=== PATIENT | male | born 2000 | race Caucasian/White ===

== ENCOUNTER 2022-09-12 14:17 | Emergency (ER) | payer OTHER, SELFPAY ==
--- NOTE | 2022-09-12 14:26 | ED.EAR ---
HPI - Ear Problem General Chief complaint: Ear Stated complaint: EARACHE Time Seen by Provider: 09/12/22 14:26 Source: patient and RN notes reviewed History of Present Illness HPI Narrative: Patient is a 22-year-old male who presents to Urgent Care with his mother with complaints of left ear pain for the last 9 days. Patient states he has been fairly miserable since he came back to our area from college on August 19. Patient does have chronic history of sinusitis and was on both Sudafed and a nasal steroid for many years stopping approximately 1-2 years ago. Patient does use a Neti pot nearly daily. Patient has not taken anything else [id number] for his symptoms. No other acute complaints. No acute distress noted. Patient aware of the plan of care. Some parts of this dictation were generated by voice recognition software and may contain typographical and/or grammatical inaccuracies. Related Data Allergies Allergy/AdvReac Type Severity Reaction Status Date / Time No Known Allergies Allergy Mild Unverified 09/12/22 14:26 Review of Systems Review of Systems: CONSTITUTIONAL: Denies fever, chills, or sweats. EYES: Denies visual changes, redness, or discharge. ENT: Denies rhinorrhea, congestion, sore throat. Reports of left otalgia and sinus pressure CARDIOVASCULAR: Denies chest pain, palpitations, or edema. RESPIRATORY: Denies cough or dyspnea. GASTROINTESTINAL: Denies abdominal pain, nausea, vomiting, or diarrhea. GENITOURINARY: Denies dysuria or hematuria. SKIN: Denies rash or itching. MUSCULOSKELETAL: Denies back pain, joint pain, or myalgia. NEUROLOGIC: Denies headache, numbness, or weakness. All other systems reviewed are negative, except as documented in HPI. PMFSH Comments At the time of my signature, I reviewed and agree with the nursing past medical, surgical, social, and family history. There is no relevant family history pertinent to the patient complaint. Exam Narrative: GENERAL: This is a well-nourished, well-developed patient, in no apparent distress. HEAD: normocephalic, atraumatic. EYES: PERRL. Sclera clear/white. Vision is grossly intact. EARS: External ears normal, auditory canals clear and without drainage, TMs normal without perforation. Hearing grossly intact. NOSE: External nose normal with no obvious nasal discharge, nares without redness, clear rhinorrhea. THROAT: Mucous membranes moist, posterior pharynx clear. Mild postnasal drainage NECK: Neck supple SKIN: warm, intact with no suspicious lesions or rash, good texture and turgor. NEURO: awake, alert, and oriented to person, place and time. There were no obvious focal neurologic abnormalities. EXTREMITIES: No clubbing, cyanosis, or edema. Course Course Level of Care: Express Care Visit Vital Signs Vital signs: Vital Signs Pulse Rate 98 09/12/22 14:28 Respiratory Rate 16 09/12/22 14:28 Blood Pressure 117/89 09/12/22 14:28 Pulse Oximetry 99 09/12/22 14:28 Pulse Rate 98 09/12/22 14:28 Respiratory Rate 16 09/12/22 14:28 Blood Pressure 117/89 09/12/22 14:28 Pulse Oximetry 99 09/12/22 14:28 Reviewed Medical Decision Making MDM Narrative Medical decision making narrative: Advised patient to complete the oral steroid regimen as prescribed. May also use Benadryl prior to bedtime. Use a humidifier at night and use normal saline spray and your Neti pot as directed. Follow-up with your PCP within 2-5 days or for worsening symptoms or failure to improve. Differential Diagnosis Differential Diagnosis: Pneumonia, Allergic Rhinitis, Upper respiratory cough syndrome, Pharyngitis, Sinusitis, Bronchitis, otitis media, viral URI, Asthma/reactive airway disease, COPD, emphysema Vital Signs Vital Signs: Vital Signs Pulse Rate 98 09/12/22 14:28 Respiratory Rate 16 09/12/22 14:28 Blood Pressure 117/89 09/12/22 14:28 Pulse Oximetry 99 09/12/22 14:28 Pulse Rate 98 09/12/22 14:28 Respiratory
[2022-09-12 14:28] VITALS: BP 117/89; PULSE 98; RESP 16; O2SAT 99
== END 2022-09-12 14:51 | disposition home or self-care (01) ==
PROVIDERS: Emergency Provider Nurse Practitioner Family
DX: H92.02 Otalgia, left ear (principal)
CPT/HCPCS: 99213; G0463